=== PATIENT | female | born 1985 | race Caucasian/White ===

== ENCOUNTER 2018-12-03 23:20 | Inpatient (IN) | payer OTHER ==
[~2018-12-03] VITALS: Ht 170.2 cm; Wt 211.8 kg
[2018-12-03 23:32] VITALS: BP 156/76
[2018-12-03] MEDS ORDERED: ABILIFY 5 MG TAB5 MG PO (23:37)
[2018-12-03] MEDS ORDERED: PROZAC10 MG PO (23:37)
[2018-12-03] MEDS ORDERED: WELLBUTRIN SR150 MG PO (23:38)
[2018-12-04 00:08] LABS: ABSOLUTE BASOPHILS 0.1 thou/uL (0.0-0.2); ABSOLUTE EOSINOPHILS 0.2 thou/uL (0.0-0.7); ABSOLUTE LYMPHOCYTES 1.9 thou/uL (0.8-5.3); ABSOLUTE MONOCYTES 0.6 thou/uL (0.0-1.2); ABSOLUTE NEUTROPHILS 7.4 thou/uL (1.6-8.1); BASOPHILS 1.2 %; EOSINOPHILS 2.4 %; HEMATOCRIT 37.6 % (37.0-47.0); HEMOGLOBIN 11.6 gm/dL (12.0-15.0); LYMPHOCYTES 18.8 %; MCH 23.9 pg (26.0-34.0); MCHC 30.8 g/dL (28.0-37.0); MCV 77.6 fL (80.0-100.0); MONOCYTES 5.6 %; MPV 7.6 fl. (7.2-11.1); NUCLEATED RBCS 0 /100WBC; PLATELET COUNT* 373 thou/uL (150-400); RBC 4.85 mil/uL (4.20-5.00); RDW-CV 19.8 % (10.5-14.5); WBC 10.3 thou/uL (4.0-11.0)
[2018-12-04 00:10] LABS: URINE BILIRUBIN NEGATIVE (Negative); URINE BLOOD 2+ (Negative); URINE COLOR YELLOW; URINE GLUCOSE-RANDOM 3+ (Negative); URINE KETONES NEGATIVE (Negative); URINE LEUKOCYTES-REFLEX 1+ (Negative); URINE NITRITE-REFLEX NEGATIVE (Negative); URINE PROTEIN NEGATIVE (Negative); URINE SPECIFIC GRAVITY <= 1.005 (1.005-1.030); URINE UROBILINOGEN 0.2 E.U./dl (0.2-1.0)
[2018-12-04 00:11] LABS: URINE CLARITY SL CLOUDY
[2018-12-04 00:19] LABS: BACTERIA-REFLEX >30 Many /HPF (None Seen); CASTS None Seen /LPF (None Seen); CRYSTALS None Seen /LPF (None Seen); MUCUS 4-6 Moderate strn/LPF (None Seen); SQUAMOUS 4-10 Moderate /LPF (0-3); URINE WBC-REFLEX >25 Many /HPF (0-5); WBC CLUMPS Moderate (None Seen); YEAST-REFLEX Present (None Seen)
[2018-12-04 00:21] LABS: INR 0.9; PROTIME 9.5 Seconds (9.20-11.50)
[2018-12-04 00:24] LABS: CALCIUM 9.5 mg/dL (8.5-10.1); CREATININE 0.9 mg/dL (0.6-1.3); POTASSIUM 4.1 mmol/L (3.5-5.1)
[2018-12-04 00:28] LABS: ALBUMIN 2.9 g/dL (3.4-5.0); TOTAL BILIRUBIN 0.2 mg/dL (<0.1-1.0); TOTAL PROTEIN 7.8 g/dL (6.4-8.2)
[2018-12-04] MEDS ORDERED: LEVO-T25 MCG PO (02:35)
[2018-12-04 04:52] VITALS: BP 127/67
[2018-12-04 04:55] VITALS: BP 145/85
[2018-12-04 11:29] VITALS: BP 101/55
[2018-12-04 15:44] VITALS: BP 125/72
[2018-12-04 19:45] VITALS: BP 119/65
[2018-12-05] VITALS: BP 138/77
[2018-12-05 02:09] LABS: GLYCOHEMOGLOBIN (HGB A1C) 12.9 % (4.8-5.6)
[2018-12-05 04:00] VITALS: BP 130/83
[2018-12-05 05:10] LABS: HEMOGLOBIN 10.8 gm/dL (12.0-15.0); MCHC 29.9 g/dL (28.0-37.0); MCV 76.9 fL (80.0-100.0); MPV 7.9 fl. (7.2-11.1); NUCLEATED RBCS 0 /100WBC; PLATELET COUNT* 369 thou/uL (150-400); RBC 4.68 mil/uL (4.20-5.00); RDW-CV 19.7 % (10.5-14.5); WBC 11.2 thou/uL (4.0-11.0)
[2018-12-05 05:23] LABS: CREATININE 0.6 mg/dL (0.6-1.3); POTASSIUM 4.6 mmol/L (3.5-5.1)
[2018-12-05 06:31] LABS: ABSOLUTE BASOPHILS 0.1 thou/uL (0.0-0.2); ABSOLUTE LYMPHOCYTES 1.1 thou/uL (0.8-5.3); ABSOLUTE MONOCYTES 0.2 thou/uL (0.0-1.2); ABSOLUTE NEUTROPHILS 9.7 thou/uL (1.6-8.1)
[2018-12-05 06:32] LABS: MICROCYTES 2+; PLATELET ESTIMATE ADEQUATE
[2018-12-05 06:33] LABS: LARGE PLATELETS RARE
[2018-12-05 06:34] LABS: HYPOCHROMASIA 1+; POLYCHROMASIA 1+
[2018-12-05 06:35] LABS: TOXIC GRANULATION 1+
[2018-12-05 08:00] VITALS: BP 136/73; BP 152/90
[2018-12-05 12:16] VITALS: BP 152/90
[2018-12-05 16:48] VITALS: BP 111/65
[2018-12-06] VITALS: BP 109/63
[2018-12-06 04:00] VITALS: BP 117/72
[2018-12-06 04:50] LABS: ABSOLUTE LYMPHOCYTES 1.1 thou/uL (0.8-5.3); ABSOLUTE MONOCYTES 0.4 thou/uL (0.0-1.2); ABSOLUTE NEUTROPHILS 8.6 thou/uL (1.6-8.1); BASOPHILS 0.1 %; HEMATOCRIT 34.3 % (37.0-47.0); HEMOGLOBIN 10.5 gm/dL (12.0-15.0); LYMPHOCYTES 10.7 %; MCH 23.3 pg (26.0-34.0); MCHC 30.7 g/dL (28.0-37.0); MONOCYTES 4.3 %; MPV 8.1 fl. (7.2-11.1); NUCLEATED RBCS 0 /100WBC; PLATELET COUNT* 360 thou/uL (150-400); POLYS 84.9 %; RBC 4.52 mil/uL (4.20-5.00); RDW-CV 19.9 % (10.5-14.5); WBC 10.2 thou/uL (4.0-11.0)
[2018-12-06 05:15] LABS: CALCIUM 9.2 mg/dL (8.5-10.1); CREATININE 0.7 mg/dL (0.6-1.3); POTASSIUM 3.9 mmol/L (3.5-5.1)
[2018-12-06 08:06] VITALS: BP 124/69
--- NOTE | 2018-12-06 11:43 | CON ---
[address] [address] CONSULTATION Name: BRAXTON RAMIREZ Room: [address] IN M.R.#: [id number] Admission: 12/04/18 Attend Phys: Boni Moeller MD Discharge: Date of : 83 Report #: [id number] THIS REPORT FOR: //name// CC: [facility] physician/PCP Boni Moeller DATE OF SERVICE: 12/04/2018 PULMONARY CONSULTATION REASON FOR CONSULTATION: 1. Acute hypoxic respiratory failure. 2. Chronic obstructive pulmonary disease exacerbation. HISTORY OF PRESENT ILLNESS: The patient is a 33-year-old female with past medical history that is significant for COPD, morbid obesity, diabetes mellitus, and recurrent urinary tract infection. The patient presented to the Emergency Department with a history of 3 days of dyspnea and chest tightness. This has been associated with intermittent wheezing. The patient unfortunately did not take bronchodilators at home. The patient also reported history of subjective chills, but no fevers. She was seen in the Emergency Department where she was found to be hypoxemic for which she was started on oxygen. Of note, the patient reported that she had a recent trip over driving to [place] back and forth with multiple stops. She denies any lower limb swelling or pain in the calf. Unfortunately, the patient is a current smoker, who smokes approximately 1 pack per day and she has been smoking since the age of 11. She denies history of upper respiratory tract infection or sick contacts. She feels very much better since she came into the Emergency Department. REVIEW OF SYSTEMS: Positive for generalized fatigue and malaise as well as dyspnea on exertion and intermittent coughing and wheezing and urinary frequency today. A 10-point review of [place] [address] CONSULTATION Name: ASHLEYBRAXTON DENNISON Room: [address] IN [facility].#: [id number] Admission: 12/04/18 Attend Phys: Boni Moeller MD Discharge: Date of : 83 Report #: [id number] PAST MEDICAL HISTORY: 1. Positive for COPD. 2. Diabetes mellitus. 3. Recurrent UTI, polycystic ovarian disease and hypothyroidism. PAST SURGICAL HISTORY: History of section in 2005. SOCIAL HISTORY: The patient states she is a current smoker, as mentioned above. She denies any history of vaping, alcohol or illicit drug abuse. FAMILY HISTORY: Positive for breast cancer in her mother as well as diabetes. PHYSICAL EXAMINATION: The patient had the following: VITAL SIGNS: Temperature is 37.2, heart rate 98, respiratory rate 18, blood pressure 145/85, saturation is 94% on 3 liters. GENERAL: Showed a young lady who is morbidly obese, who is conscious, oriented x 3. HEENT: Showed atraumatic head. Pupils are round, reactive to light and accommodation. NECK: Supple. No JVD, thyromegaly or cervical lymphadenopathy. No carotid bruit. CARDIOVASCULAR: Regular rate and rhythm. Normal S1, S2. No murmur. CHEST: Showed decreased air entry with bilateral rhonchi end expiratory. No crackles. ABDOMEN: Soft, lax, nontender, obese. EXTREMITIES: Lower limb examination showed trace edema, but no clubbing, cyanosis or deformity. LABORATORY DATA: As follows: CBC showed WBC count of 10.8, hemoglobin of 11.6 and platelets of 373. Urinalysis showed many bacteria and wbc's. Her BMP was within normal limits with creatinine of 0.9. BNP is 158, which is normal. D-dimer was 0.71. She underwent CT angio of the chest upon admission that showed no evidence of pulmonary embolism in the central vessels or secondary branches. No other peripheral pulmonary bronchi as well seen due to a combination of body habitus and diminished opacification. Nothing for pulmonary embolism or dissection is identified. The lungs are clear with minor dependent atelectasis. ASSESSMENT: 1. Acute hypoxic respiratory failure. 2. Acute exacerbation of chronic obstructive pulmonary disease. 3. Acute bronchitis. 4. Continuous tobacco dependency. 5. Recurrent urinary tract infection. 6. [place] [address] CONSULTATION Name: ASHLEY,BRAXTON DENNISON Room: [address] IN M.R.#: [id number] Admission: 12/04/18 Attend Phys: Boni Moeller MD Discharge: Date of : 83 Report #: [id number] PLAN: 1. The patient appears to have acute exacerbation of chronic obstructive pulmonary disease with acute bronchitis. I will check viral respiratory panel. 2. I will start the patient on scheduled bronchodilators. 3. IV Solu-Medrol. 4. I will start the patient on Levaquin that would cover for bronchitis and urinary tract infection. 5. Titrate oxygen to keep saturation above 92%. 6. Incentive spirometry. 7. Mobilization as tolerated. 8. Counseling on smoking cessation. 9. The patient appears to have recurrent urinary tract infection. 10. We will follow culture result and adjust antibiotic coverage accordingly. Thank you for giving us the opportunity to participate in the management of this patient. <ELECTRONICALLY SIGNED> By: Radha Lucas MD 12/06/18 1143 0918 1035Ammaracheal Lucas MD /nt
[2018-12-06 11:55] VITALS: BP 113/70
[2018-12-06 16:00] VITALS: BP 122/72
[2018-12-06 20:30] VITALS: BP 128/81
[2018-12-07] VITALS: BP 112/59
[2018-12-07 04:00] VITALS: BP 122/65
[2018-12-07 07:57] VITALS: BP 119/69
--- NOTE | 2018-12-07 08:34 | EKG ---
[place] [address] ELECTROCARDIOGRAM REPORT Name: ASHLEYBRAXTON Room: [address] ADM IN ..#: [id number] Admission: 12/04/18 Attend Phys: Boni Moeller MD Discharge: Date of : 83 Report #: [id number] THIS REPORT FOR: //name// [facility] ED Test Date: 2018-12-04 Test Time: 00:19:48 Pat Name: BRAXTON RAMIREZ Department: Room: [address] Gender: F Elementary [employer]: MEGAN : 1985 Requested By: Marie Oliveros Order Number: [id number] MD: Guillermo Arora Measurements Intervals [place] Rate: 105 P: 69 CA: 153 QRS: 79 QRSD: 94 T: 27 QT: 356 QTc: 471 Interpretive Statements Sinus tachycardia No previous ECG available for comparison Electronically Signed On 12-07-2018 8:34:00 CDT by Guillermo Arora [email or web address] <ELECTRONICALLY SIGNED> By: Guillermo Arora MD, [facility] 12/07/18 0834 D: 1018 Guillermo Arora MD, FACC /EPI
[2018-12-07 11:52] VITALS: BP 128/71
--- NOTE | 2018-12-07 14:57 | 2DMMODE ---
[place] [address] 2 D/M-MODE ECHOCARDIOGRAM Name: BRAXTON RAMIREZ [facility]#: [id number] Admission: 12/04/18 Attend Phys: Boni Moelelr, Discharge: Date of : 83 Date of Service: 12/07/18 1457 Report #: [id number] THIS REPORT FOR: //name// APPROVED REPORT Study performed: 12/07/2018 14:08:13 EXAM: Comprehensive 2D, Doppler, and color-flow Echocardiogram Patient Location: In-Patient Room #: [facility] Status: routine BSA: 2.71 HR: 99 bpm BP: 128/71 mmHg Rhythm: NSR Other Information Study Quality: technically limited study Indications Dyspnea 2D Dimensions IVSd: 15.72 (7-11mm) LVOT Diam: 20.72 (18-24mm) LVDd: 42.11 mm PWd: 13.31 (7-11mm) Ascending Ao: 29.61 (22-36mm) LVDs: 28.03 (25-40mm) Aortic Root: 29.07 mm Volumes Left Atrial Volume (Systole) LA ESV Index: 25.30 mL/m2 Aortic Valve AoV Peak David.: 1.75 m/s AO Peak Gr.: 12.22 mmHg LVOT Max P.15 mmHg AO Mean Gr.: 7.62 mmHg LVOT Mean P.33 mmHg LVOT Max V: 1.34 m/s AO V2 VTI: 32.20 cm LVOT Mean V: 0.98 m/s ANTONINO (VTI): 3.01 cm2 LVOT V1 VTI: 28.78 cm Mitral Valve E/A Ratio: 1.12 MV Decel. Time: 91.17 ms MV E Max David.: 1.41 m/[place] [address] 2 D/M-MODE ECHOCARDIOGRAM Name: BRAXTON RAMIREZ Room: [address] IN ..#: [id number] Admission: 12/04/18 Attend Phys: Boni Moeller, Discharge: Date of : 83 Date of Service: 12/07/18 1457 Report #: [id number] MV PHT: 26.44 ms MVA (PHT): 8.32 cm2 TDI E/Lateral E': 8.81 E/Medial E': 9.40 Medial E' David.: 0.15 m/s Lateral E' David.: 0.16 m/s Pulmonary Valve PV Peak David.: 1.12 m/s PV Peak Gr.: 5.06 mmHg Tricuspid Valve RAP Estimate: 5.00 mmHg TR Peak Gr.: 31.88 mmHg RVSP: 36.00 mmHg PA Pressure: 36.00 mmHg Left Ventricle The left ventricle is grossly normal size. There is normal LV segmental wall motion without obvious wall motion abnormality. There is normal left ventricular wall thickness. Left ventricular systolic function is normal. LVEF is 60-65%. The left ventricular diastolic function is normal. Right Ventricle The right ventricle is normal size. The right ventricular systolic function is normal. Atria The left atrium size is normal. The right atrium size is normal. Aortic Valve The aortic valve is not well visualized. No aortic regurgitation is present. There is no aortic valvular stenosis. Mitral Valve The mitral valve is not well visualized. There is no mitral valve regurgitation noted. No evidence of mitral valve stenosis. Tricuspid Valve The tricuspid valve is not well visualized. Trace tricuspid regurgitation. The RVSP is 40-45 mmHg consistent with mild pulmonary hypertension. Pulmonic Valve The pulmonary valve is not visualized. There [place] [address] 2 D/M-MODE ECHOCARDIOGRAM Name: BRAXTON RAMIREZ Room: [address] IN ..#: [id number] Admission: 12/04/18 Attend Phys: Boni Moeller, Discharge: Date of : 83 Date of Service: 12/07/18 1457 Report #: [id number] regurgitation. Great Vessels The aortic root is normal in size. IVC is normal in size and collapses >50% with inspiration. Pericardium There is no pericardial effusion. <Conclusion> The left ventricle is grossly normal size. There is normal left ventricular wall thickness. Left ventricular systolic function is normal. LVEF is 60-65%. The left ventricular diastolic function is normal. Trace tricuspid regurgitation. The RVSP is 40-45 mmHg consistent with mild pulmonary hypertension. IVC is normal in size and collapses >50% with inspiration. <ELECTRONICALLY SIGNED> By: Guillermo Arora MD, FACC 12/07/18 1457 1457 1457 Guillermo Arora MD, FACC /INF
[2018-12-07 16:59] VITALS: BP 124/60
[2018-12-07 20:00] VITALS: BP 114/69
[2018-12-08] VITALS (7 sets, daily range): BP systolic 106–147; BP diastolic 61–84
[2018-12-08 06:10] LABS: ADENOVIRUS Negative (Negative); INFLUENZA A Negative (Negative); INFLUENZA B Negative (Negative); METAPNEUMOVIRUS Negative (Negative); PARAINFLUENZA 1 Negative (Negative); PARAINFLUENZA 2 Negative (Negative); PARAINFLUENZA 3 Negative (Negative); RHINOVIRUS Negative (Negative); RSV A Negative (Negative); RSV B Negative (Negative)
[2018-12-08] MEDS ORDERED: LANTUS SUBQ (09:26)
[2018-12-08] MEDS ORDERED: HUMALOG100 UNIT/1 SUBQ (09:28)
[2018-12-08] MEDS ORDERED: RAYOS5 MG PO (09:33)
[2018-12-08] MEDS ORDERED: LEVAQUIN 500 M500 M3 PO (09:34)
[2018-12-08] MEDS ORDERED: BREO ELLIPTA 21 EACH INH (09:35)
[2018-12-08] MEDS ORDERED: PROAIR RESPICL90 MCG INH (09:38)
[2018-12-09 00:30] VITALS: BP 119/64
[2018-12-09 04:28] VITALS: BP 135/71
[2018-12-09 08:00] VITALS: BP 131/72
[2018-12-09 12:19] VITALS: BP 129/71
[2018-12-09] MEDS ORDERED: PREDNISONE10 MG PO (14:01)
[2018-12-09] MEDS ORDERED: LEVAQUIN 500 M500 M3 PO (14:03)
[2018-12-09] MEDS ORDERED: BREO ELLIPTA 21 EACH PO (14:06)
[2018-12-09 15:54] VITALS: BP 126/55
--- NOTE | 2018-12-17 16:12 | CON ---
[address] [address] CONSULTATION Name: BRAXTON RAMIREZ Room: [address] IN M.R.#: [id number] Admission: 12/04/18 Attend Phys: Boni Moeller MD Discharge: 12/09/18 Date of : 83 Report #: [id number] THIS REPORT FOR: //name// CC: [facility] physician/PCP Boni Moeller DATE OF SERVICE: 12/05/2018 INFECTIOUS DISEASE CONSULTATION REASON FOR CONSULTATION: I was asked to evaluate concerning gram-positive cocci bacteremia in the setting of COPD exacerbation, bronchitis, and urinary tract infection. HISTORY OF PRESENT ILLNESS: The patient is a 33-year-old with longstanding history of COPD, diabetes, and morbid obesity. She had been residing in [place], but has been in [place] in the last several months. She has had a 3-day history of dyspnea, chest tightness, heaviness in the anterior chest with cough and purulent sputum production. Denies any fever, chills or sweats. She has had no hemoptysis or pleuritic chest pain. She has had intermittent wheezing. Recently had a road trip to [place] where she visited family and subsequently returned. Other members of her traveling green party, her and son have been without respiratory tract infection symptoms. She has had no lower extremity edema or pain in her calves. She continues to smoke cigarettes. Following admission through the Emergency Room, she was placed on corticosteroids and started on antibiotic therapy. Today, she feels much improved. REVIEW OF SYSTEMS: Denies any nausea, vomiting, diarrhea, dysuria or frequency. No skin rashes or adenopathy noted. No other bleeding issues. A 10-point review was negative other than what has been noted above. PAST MEDICAL HISTORY: Diabetes, obesity, COPD, recurrent urinary tract infection, polycystic ovarian disease, hypothyroidism, , and bipolar disorder. ALLERGIES: None known. MEDICATIONS: Prior to her admission included Prozac, Abilify, Wellbutrin, and levothyroxine. Currently on methylprednisolone, vancomycin, and Levaquin. FAMILY HISTORY: Noncontributory. SOCIAL HISTORY: Smoker, no significant alcohol intake, and no HIV risk factors. PHYSICAL EXAMINATION: VITAL SIGNS: She is afebrile and hemodynamically stable. She is [place] 2 [place] [address] CONSULTATION Name: BRAXTON RAMIREZ Room: [address]#: [id number] Admission: 12/04/18 Attend Phys: Boni Moeller MD Discharge: 12/09/18 Date of : 83 Report #: [id number] oxygen per nasal cannula. SKIN: Without rash. She had multiple tattoos. No palpable adenopathy. She was morbidly obese. EYES: Without scleral icterus. MOUTH: Without mucositis. NECK: Supple with no thyromegaly or mass. LUNGS: Clear anteriorly. Decreased breath sounds posteriorly. HEART: Regular without murmur, gallop, or rub. ABDOMEN: Soft, nontender with no hepatosplenomegaly or mass appreciated. EXTREMITIES: Without clubbing, cyanosis, or edema. NEUROLOGIC: Cranial nerves were intact and strength in the upper and lower extremities was normal. Sensation is intact. LABORATORY STUDIES: One of two blood cultures is positive for gram-positive cocci, identification pending. Hemoglobin 10.8, WBC 11.2, platelet count 369,000 with 86% segs and 1% band. Sodium 135, potassium 4.6, bicarbonate 32, creatinine 0.6. Blood glucose 335. Hemoglobin A1c 12.9. CT scan of the chest PE protocol, no evidence of emboli. Lungs were clear with minor dependent atelectasis. Liver function test normal other than an alkaline phosphatase of 161. Urinalysis, many wbc's and many bacteria. Urine culture is pending. IMPRESSION AND PLAN: A 33-year-old with underlying history of morbid obesity, chronic obstructive pulmonary disease and ongoing tobacco user, presents with exacerbation of chronic obstructive pulmonary disease along with urinary tract infection, suspect cystitis, although the patient was asymptomatic. She has gram-positive cocci bacteremia, still indeterminate if this is true or contaminant. Recommend continuing her current antibiotic program with vancomycin and Levaquin pending culture results. Agree with corticosteroids and Pulmonary Medicine plan of care. We will adjust her antibiotics pending cultures. <ELECTRONICALLY SIGNED> By: Gary Lion MD 12/17/18 1612 1815 39Damitch Lion MD /nt
== END 2018-12-09 15:30 | disposition home health service (06) | DRG 871 ==
LOC: M.ERS 23:20 → M.2W 12-04 02:04 → M.TBA-ER 12-04 02:04 → M.2W 12-04 04:38
PROVIDERS: Emergency Medicine; Internal Medicine; Internal Medicine Critical Care Medicine; ADMIT Internal Medicine
DX: A41.89 Other specified sepsis (principal); J96.01 Acute respiratory failure with hypoxia; J18.9 Pneumonia, unspecified organism; J44.1 Chronic obstructive pulmonary disease with (acute) exacerbation; N30.00 Acute cystitis without hematuria; E46 Unspecified protein-calorie malnutrition; Z68.45 Body mass index [BMI] 70 or greater, adult; J44.0 Chronic obstructive pulmonary disease with (acute) lower respiratory infection; E11.65 Type 2 diabetes mellitus with hyperglycemia; J20.9 Acute bronchitis, unspecified; E66.01 Morbid (severe) obesity due to excess calories; F31.9 Bipolar disorder, unspecified; F17.210 Nicotine dependence, cigarettes, uncomplicated; G47.33 Obstructive sleep apnea (adult) (pediatric); E03.9 Hypothyroidism, unspecified; D64.9 Anemia, unspecified; Z28.21 Immunization not carried out because of patient refusal; Z80.3 Family history of malignant neoplasm of breast; Z83.3 Family history of diabetes mellitus